=== PATIENT | female | born 1995 | race African-American/Black ===

== ENCOUNTER 2019-01-08 08:16 | Inpatient (IN) | payer BC, MEDICAID ==
[2019-01-08] MEDS ORDERED: Buffered Lidocaine 1% SYRIN* 1 ML/SYRINGE INTRADERM ONE (11:04)
[2019-01-08] MEDS ORDERED: Lactated Ringers 1000 ML Bag* 1,000 ML IV ONE ×2 (11:04→22:26)
--- NOTE | 2019-01-08 11:22 | HP ---
General Information - Reason for Visit post term - General Information Maternal Age: 24 Grav: 1 Para: 0 Estimated Due Date: 01/03/19 Determined By: LMP Maternal Blood Type and Rh: O Positive - Results this Serology/RPR Result: Non-Reactive Rubella Result: Immune HBsAg Result: Negative HIV Result: Negative GBS Culture Result: Negative Past Medical History Pertinent Past Medical History: See Records Pertinent Past Surgical History: None Pertinent Family History: Non-Contributory - Antepartal Records Antepartal Records: Reviewed, Uncomplicated - post dates Review of Systems Constitutional: Comfortable CV Complaint: No Respiratory: Shortness of Breath: No Gastrointestinal: No Nausea/Vomiting Genitourinary: No Bleeding, No Leaking Fluid Musculoskeletal: No Complaint Neurological: No Headache Movement: Normal Exam - Exam Breast: Breast Exam Deferred Extremities: Edema - +1` Heart: Normal Rhythm/Heart Sounds HEENT: No Significant Findings Lungs: Clear Bilaterally Reflexes: DTR 2+ Targeted Exam Findings See L&D Outpatient Visit Provider Note for Findings: N/A Cervical Exam: 2cm Effacement: 80% Station: -2 Presenting Part: Vertex Membrane Status: AROM EFM Findings - External Monitor Findings Baseline Heart Rate: 130 External Monitor Findings: Variability Moderate Contractions: None Assessment/Plan - Obstetrical Risk Factors Obstetrical Risk Factors: Post-Dates - Plan Plan: Induction - option of prostaglandin vs ballon vs aroma nd pitocin discussed . pt wishes aggressive approach
[2019-01-08 11:36] LABS: ABS Eosinophils 0.5 10^3/ul (0-0.6); ABS Lymphocytes 1.9 10^3/ul (1.0-4.8); ABS Monocytes 0.6 10^3/ul (0-0.8); ABS Neutrophils 8.4 10^3/ul (1.5-7.7); Eosinophil % 4.1 %; Hematocrit 36 % (35-47); Hemoglobin 11.9 g/dL (12.0-16.0); Lymphocyte % 16.3 %; Mean Corpuscular HGB Conc 33 g/dL (31-36); Mean Corpuscular Hemoglobin 29 pg (27-31); Mean Corpuscular Volume 86 fL (80-97); Nucleated Red Blood Cells % 0.1; Platelet Count 218 10^3/uL (150-450); Red Blood Count 4.19 10^6 /uL (3.70-4.87); Red Cell Distribution Width 14 % (10-15); White Blood Count 11.5 10^3/uL (3.5-10.8)
[2019-01-08] MEDS ORDERED: Oxytocin in LR* 20 UNITS/1,000 ML BAG IVPB SCH (12:00)
[2019-01-08 13:35] LABS: Urine Benzodiazepine Screen None Detected (None Detect); Urine Opiates Screen None Detected (None Detect)
[2019-01-08] MEDS: Lactated Ringers 1000 ML Bag* 1,000 ML IV SCH ×2 (16:13→21:41)
[2019-01-08] MEDS ORDERED: OBEPIDURAL* 250 ML EPIDURAL ONE (21:20)
[2019-01-08] MEDS ORDERED: Famotidine TAB* 20 MG PO PRN (22:26)
[2019-01-08] MEDS ORDERED: Phenylephrine 40 MCG/ML SYRINGE IV PUSH PRN ×2 (22:26)
[2019-01-08] MEDS ORDERED: Lactated Ringers 1000 ML Bag* 500 ML IV PRN ×2 (22:26)
[2019-01-08] MEDS ORDERED: Sodium Citrate/Citric Acid* 15 ML UDC PO PRN (22:26)
[2019-01-08] MEDS ORDERED: OBEPIDURAL* 250 ML EPIDURAL SCH (23:00)
[2019-01-08] MEDS ORDERED: Lactated Ringers 1000 ML Bag* 1,000 ML IV SCH ×2 (23:00)
[2019-01-09] MEDS ORDERED: ceFOXitin 2 GM IVPREMIX* 0 GM/0 ML BAG ONE (02:28)
[2019-01-09] MEDS ORDERED: Clindamycin 900 MG/D5W BAG(*) 900 MG/50 ML BAG IVPB ONE (02:29)
[2019-01-09] MEDS ORDERED: Sodium Citrate/Citric Acid* 15 ML UDC PO ONE (02:32)
[2019-01-09] MEDS ORDERED: Gentamicin ADULT per pharmacy 1 NOTE MISC FOLLOW UP PRN (02:35)
[2019-01-09] MEDS ORDERED: Phenylephrine 10 MG/ML VIAL* 1 ML VIAL ONE (02:41)
[2019-01-09] MEDS ORDERED: Morphine PF AMP (0.5MG/ML)* 5 MG/10 ML AMP ONE (02:41)
[2019-01-09] MEDS ORDERED: OXYTOCIN* 10 UNITS/ML 1 ML VIAL ONE (02:41)
[2019-01-09] MEDS ORDERED: fentaNYL* 50 MCG/ML 2 ML VIAL (100 MCG VIAL) ONE ×2 (02:41→03:17)
[2019-01-09] MEDS ORDERED: Lidocaine 2% EPI 1:200000 MPF*10-20 ML VIAL ONE (02:42)
[2019-01-09] MEDS ORDERED: Chloroprocaine 3%* 20 ML VIAL ONE (02:42)
[2019-01-09] MEDS ORDERED: Gentamicin ADULT (*) 180 MG in NS 0.9% 100 ML* 100 ML IVPB ONE (03:00)
[2019-01-09] MEDS ORDERED: fentaNYL* 50 MCG/ML 2 ML VIAL (100 MCG VIAL) IV PRN (03:26)
[2019-01-09] MEDS ORDERED: Ondansetron INJ* 2 MG/ML VIAL IV PRN ×2 (03:26→03:28)
[2019-01-09] MEDS ORDERED: Naloxone* 0.4 MG/ML 1 ML VIAL IV PRN ×2 (03:26→03:28)
[2019-01-09] MEDS ORDERED: Nalbuphine* 10 MG/ML 1 ML VIAL IV PRN (03:28)
[2019-01-09] MEDS ORDERED: diPHENhydraMINE IV* 50 MG/ML 1 ml VIAL (BENADRYL) IV PRN (03:28)
[2019-01-09] MEDS ORDERED: oxyCODONE/Acetamin 5/325 MG* TAB PO PRN ×4 (03:28→19:15)
[2019-01-09] MEDS ORDERED: Zolpidem TAB* 5 MG PO PRN (03:59)
[2019-01-09] MEDS ORDERED: Glycerin ADULT SUPP PR PRN (03:59)
[2019-01-09] MEDS ORDERED: Dibucaine 1% 28.35 GM TUBE PR PRN (03:59)
[2019-01-09] MEDS ORDERED: Witch Hazel PAD* JAR TOPICAL PRN (03:59)
[2019-01-09] MEDS ORDERED: Varicella Virus Vaccine Live* 0.5 ML VIAL SUBCUT ONE (03:59)
[2019-01-09] MEDS ORDERED: Oxytocin in LR* 20 UNITS/1,000 ML BAG IVPB SCH (04:00)
[2019-01-09] MEDS ORDERED: Lactated Ringers 1000 ML Bag* 1,000 ML IV SCH (04:00)
[2019-01-09] MEDS: Lactated Ringers 1000 ML Bag* 1,000 ML IV SCH (04:16)
--- NOTE | 2019-01-09 07:30 | OP ---
DATE OF OPERATION: 01/09/19 - ROOM #116 DATE OF : 89. SURGEON: Jose Avilez MD. ASSISTANTS: Dr. Lamont Pop. ANESTHESIA: Epidural. PRE-OP DIAGNOSIS: Arrest of dilation descent, multiple variable decelerations. POST-OP DIAGNOSIS: Arrest of dilation descent, multiple variable decelerations , nuchal cord x1. OPERATIVE PROCEDURE: Low transverse section. COMPLICATIONS: None. ESTIMATED BLOOD LOSS: 600 cc. FINDINGS: She is 24-year-old 1 Para 0, who was being induced for a post term at 40 weeks 5 days. She started at approximately 1 to 2 cm and after artificial rupture of membranes and Pitocin progressed to approximately 4 cm at which time she remained that way for several hours without further dilation or descent. Baby during that time had occasional variable decels but remained with moderate variability. At the time of the she had a viable male, Apgars were 9 and 9. Weight was 7 pounds 6 ounces. There was a nuchal cord x1. DESCRIPTION OF PROCEDURE: The patient was identified, procedure identified as a low-transverse section. The patient was taken to the operating room, prepped and draped in the usual fashion in the left lateral recumbent position under epidural anesthesia. A Pfannenstiel incision was made in the abdomen and carried down through the fat, fascia, and peritoneum. A bladder flap was created via sharp dissection. The Magdi retractor was placed for a retraction. A transverse incision was made in the lower uterine segment and extended laterally using blunt dissection. The above was delivered through the incision with ease. The loop was looped off. Cord was doubly clamped and cut. The was handed to the awaiting dumbwaiter operator. Cord blood was obtained. Placenta delivered spontaneously. The uterus was wiped out with a wet lap sponge. The uterine incision was then closed using 0 Polysorb in a running fashion. A second layer was used to imbricate the first layer. Good hemostasis was verified within the peritoneal cavity. The Magdi retractor was removed and the peritoneum was then closed using 3-0 Polysorb in a running fashion. Good hemostasis achieved in the subrectus layer. The fascia was closed with 0-Polysorb in the running fashion. Hemostasis was achieved in the subcu. Copious irrigation was utilized and suctioned out. The space was closed using 3-0 Vicryl in a simple fashion. Hemostasis was achieved in the skin and the skin was closed with 4-0 Monocryl in a subcuticular fashion. All sponge and instrument counts were correct, and the patient returned to the recovery room in a stable condition. [id number]/[facility] #: [id number] MTDD
[2019-01-09] MEDS: Docusate CAP* 100 MG PO SCH ×3 (07:48→20:34)
[2019-01-09] MEDS: Simethicone TAB* 80 MG TAB.CHEW PO SCH ×4 (07:48→20:34)
[2019-01-09] MEDS: Ketorolac INJ* 30 MG/ML 1 ML VIAL IV PRN ×3 (07:48→20:34)
[2019-01-09] MEDS: Acetaminophen TAB* 325 MG PO PRN (12:55)
[2019-01-10] MEDS: Ibuprofen TAB* 600 MG PO PRN ×3 (03:49→21:42)
[2019-01-10 06:12] LABS: ABS Eosinophils 0.3 10^3/ul (0-0.6); ABS Lymphocytes 2.2 10^3/ul (1.0-4.8); ABS Monocytes 0.8 10^3/ul (0-0.8); ABS Neutrophils 9.2 10^3/ul (1.5-7.7); Eosinophil % 2.5 %; Hematocrit 28 % (35-47); Hemoglobin 9.2 g/dL (12.0-16.0); Lymphocyte % 17.7 %; Mean Corpuscular HGB Conc 33 g/dL (31-36); Mean Corpuscular Hemoglobin 28 pg (27-31); Mean Corpuscular Volume 86 fL (80-97); Mean Platelet Volume 8.8 fL (7.4-10.4); Platelet Count 170 10^3/uL (150-450); Red Blood Count 3.26 10^6 /uL (3.70-4.87); Red Cell Distribution Width 14 % (10-15); White Blood Count 12.6 10^3/uL (3.5-10.8)
[2019-01-10] MEDS: Docusate CAP* 100 MG PO SCH ×3 (08:28→21:42)
[2019-01-10] MEDS: Acetaminophen TAB* 325 MG PO PRN ×4 (08:28→21:42)
[2019-01-10] MEDS: Ferrous Gluconate TAB* 324 MG TAB PO SCH ×2 (08:28→21:42)
[2019-01-10] MEDS: Simethicone TAB* 80 MG TAB.CHEW PO SCH ×4 (08:28→21:42)
[2019-01-11] MEDS: Acetaminophen TAB* 325 MG PO PRN ×6 (01:26→21:52)
[2019-01-11] MEDS: Ibuprofen TAB* 600 MG PO PRN ×4 (03:53→21:52)
[2019-01-11] MEDS: Simethicone TAB* 80 MG TAB.CHEW PO SCH ×3 (09:47→15:41)
[2019-01-11] MEDS: Docusate CAP* 100 MG PO SCH ×3 (09:47→21:52)
[2019-01-11] MEDS: Ferrous Gluconate TAB* 324 MG TAB PO SCH (09:47)
[2019-01-12] MEDS: Docusate CAP* 100 MG PO SCH (08:06)
[2019-01-12] MEDS: Simethicone TAB* 80 MG TAB.CHEW PO SCH (08:06)
[2019-01-12] MEDS: Ibuprofen TAB* 600 MG PO PRN (08:06)
[2019-01-12] MEDS: Acetaminophen TAB* 325 MG PO PRN (08:06)
[2019-01-12] MEDS: Ferrous Gluconate TAB* 324 MG TAB PO SCH (08:06)
[2019-01-12 10:02] VITALS: BP 133/66
== END 2019-01-12 11:27 | disposition home or self-care (01) | DRG 540 ==
LOC: MCHOBOUT 08:16 → MCHOB 10:24
PROVIDERS: ADMIT Obstetrics & Gynecology; ATTEND Obstetrics & Gynecology
PROC: 3E033VJ Introduction of Other Hormone into Peripheral Vein, Percutaneous Approach (ICD-10-PCS; 2019-01-09)
PROC: 10907ZC Drainage of Amniotic Fluid, Therapeutic from Products of Conception, Via Natural or Artificial Opening (ICD-10-PCS; 2019-01-09)
PROC: 10D00Z1 Extraction of Products of Conception, Low, Open Approach (ICD-10-PCS; principal; 2019-01-09 02:46)
DX: O62.0 Primary inadequate contractions (principal); O48.0 Post-term pregnancy; O76 Abnormality in fetal heart rate and rhythm complicating labor and delivery; O69.81X0 Labor and delivery complicated by cord around neck, without compression, not applicable or unspecified; O99.334 Smoking (tobacco) complicating childbirth; O99.344 Other mental disorders complicating childbirth; F31.9 Bipolar disorder, unspecified; O90.81 Anemia of the puerperium; D64.9 Anemia, unspecified; Z3A.40 40 weeks gestation of pregnancy; Z37.0 Single live birth
CPT/HCPCS: 36415; 80307; 85025; 86850; 86900; 86901; A9270-GY; J0694; J1580; J1885; J2400; J2590; J3010